=== PATIENT | female | born 1990 | race Caucasian/White ===

== ENCOUNTER 2018-07-30 12:10 | Emergency (ER) | payer BC, OTHER ==
[~2018-07-30] VITALS: Ht 170.2 cm; Wt 104.3 kg
[~2018-07-30 12:10] MED LIST: ADDERALL 10 MG10 MG PO; ADVAIR HFA 115-12 GM INH; NUVARING VAGIN1 EACH; PROAIR HFA INH8.5 GM INH
--- OUTSIDE RECORDS SUMMARY | 2018-07-30 12:15 | XMS REPORT | Encounter Summary ---
Author Organization Unknown Address [address] [place] [address] Phone [phone] Reason for Visit Medical Complaint; uti x 3 days Instructions 1. Candidiasis of vagina nystatin 100,000 unit/gram topical cream Diflucan [address] + NG DNA, PCR, unspecified specimen culture, urine urinalysis, dipstick Discussion Note: None recorded. Patient educational handouts: No information available. Plan of Care Patient Instructions Ok to take probiotic along with prescribed medication. Abstain from sex until result comes back. Increase fluid intake. Reminders Provider Appointments Medical 01/29/2016 8:05AM [id number], TECH Lab CT + NG DNA, PCR, Unspecified Specimen 01/28/2016 [facility] Culture, Urine 01/28/2016 [facility] Urinalysis, Dipstick 01/28/2016 [facility] Referral None recorded. Procedures None recorded. Surgeries None recorded. Imaging None recorded. Medications Name Start Date Adderall 10 mg tablet Take 1 tablet every day by oral route. Diflucan 150 mg tablet Take 1 tablet today and repeat in 3 days Loestrin 1.5/30 (21) 1.5 mg-30 mcg tablet Take 1 tablet every day by oral route. Nexium 20 mg capsule,delayed release Take 1 capsule every day by oral route. nystatin 100,000 unit/gram topical cream APPLY TO THE AFFECTED AREA(S) BY TOPICAL ROUTE 2 TIMES PER DAY x 14 days Medications Administered None recorded. Vitals Height Weight BMI Blood Pressure 5 ft 7 in 170 lbs 26.6 120/76 Lab Results Date Name Result Description Value Range Status Urinalysis, Dipstick Color : Yellow Clarity : Cloudy Leukocytes : Negative Nitrites : Negative Urobilinogen : Normal Protein : Negative Ph : 5.5 Blood : Negative Specific [place] : 1.005 Ketones : Negative Bilirubin : Negative Glucose Negative Allergies Name Reaction Severity Onset Prednisone Itching Severe Problems Name Status Onset Date Source Viral Syndrome Active Encounter Candidiasis of Vagina Active Encounter Pyelonephritis Active Encounter Urinary Tract Infectious Disease Active Encounter Procedures Date Name Performed by Tonsillectomy Information not available Vaccine List None recorded. Social History Smoking Status Never Smoker Past Encounters 01/28/2016 Candidiasis of Vagina Bailey Sanon, [facility]: [address] [place] [address], Ph. History of Present Illness [id number] Reported By: Patient HPI: Location: vagina. Quality: burning. Severity: moderate. Duration: started 3 days. Onset/Timing: worse. Context: no known exposure to STD, no prior history of STDs, sexually active, heterosexual, history of urine cultures/antibiotic treatment, wipes anterior to posterior, voids after intercourse, history of kidney stones. Modifying factors OTC medication. Associated Symptoms: no fever/chills, no flank pain, no jaundice, no blood in the urine, no pain during urination, no blisters on genitals, no rash on genitals, white vaginal discharge, urgency, urinary frequency Review of Systems Basic Reported By: Patient Constitutional: Constitutional: no fever Eyes: Eyes: no eye complaints Yatg-Daig-Qfrls-Throat: Ears: no ear complaints. Nose: no nose/sinus problems. Mouth/Throat: no sore throat, no bleeding gums, no mouth complaints, no teeth problems Cardiovascular: Cardiovascular: no chest pain, no shortness of breath, no known heart murmur Respiratory: Respiratory: no cough, no wheezing, no shortness of breath Gastrointestinal: Gastrointestinal: no abdominal pain, no vomiting / diarrhea Genitourinary: Genitourinary: no discharge, urinary urgency Musculoskeletal: Musculoskeletal: no muscle aches, no muscle weakness, no arthralgias/joint pain, no back pain Skin: Skin: no abnormal / changing mole, no jaundice, no rashes Neurologic: Neurologic: no loss of consciousness, no weakness, no numbness, no seizures, no dizziness, no headaches Physical Exam Adult Basic, Adult Female Complete Female : External genitalia: rash. Vagina: abnormal discharge; Thick curd discharge to genital area with mild erythematous rash to labia minora
--- OUTSIDE RECORDS SUMMARY | 2018-07-30 12:15 | XMS REPORT | Clinical Summary ---
Author Author [facility] Address Unknown Phone Unavailable Care Team Providers Care National Secretary Name Role Phone Wiliam Nolan MD PCP Allergies No Known Allergies Medications End Date Status Medication Sig Dispensed Refills Start Date Active valACYclovir (VALTREX) Take 500 mg 0 500 MG tablet by mouth 2 (two) times a day as needed. Active ASCORBATE CALCIUM Take 2 0 (VITAMIN C ORAL) tablets by mouth 2 (two) times a day. gummies Active dextroamphetamine-ampheta Take 10 mg by 0 mine (ADDERALL) 10 mg mouth 2 (two) tablet times a day. Active Problems Problem Noted Date Anemia 12/10/2015 Periumbilical abdominal pain 12/09/2015 GERD (gastroesophageal reflux disease) Asthma Overview: allergy induced Hyperglycemia ADD (attention deficit disorder) Family History Medical History Relation Name Comments Cancer Father Hypertension Father Cancer Maternal Grandfather Hypertension Mother Relation Name Status Comments Father Maternal Grandfather Mother Social History Date Tobacco Use Types Packs/Day Years Used Never Smoker Smokeless Tobacco: Never Used Alcohol Use Drinks/Week oz/Week Comments Yes 1 Glasses of 1.2 occassional wine 1 Cans of beer Sex Assigned at Date Recorded Not on file Industry Job Start Date Occupation Not on file Not on file Not on file Travel End Travel History Travel Start No recent travel history available. Last Filed Vital Signs Not on file Plan of Treatment Health Maintenance Due Date Last Done Comments CERVICAL CANCER SCREENING 2010 INFLUENZA VACCINE 12/29/2017 Results Not on fileafter 07/29/2017 Insurance Payer Benefit Subscriber ID Type Phone Address Plan / Group AETNA AETNA PPO xxxxxxxxxx PPO OPEN CHOICE AETNA AETNA xxxxxxxxxx HMO HMO,POS,EP O, MC/EC Alyse Hahn Reconstruc Self [phone] (Home) [place] [id number] Surgery Advance Directives Patient has advance care planning documents on file. For more information, angelo pickens contact: [employer] [address] [place] [address]
--- OUTSIDE RECORDS SUMMARY | 2018-07-30 12:15 | XMS REPORT | Encounter Summary ---
Author Organization Unknown Address [address] [place] [address] Phone [phone] Reason for Visit Medical Complaint Instructions 1. Urinary symptoms urinalysis, dipstick Bactrim DS 800 mg-160 mg tablet culture, urine Discussion Note: None recorded. Patient educational handouts: No information available. Plan of Care Patient Instructions take antibiotics as prescribed. increase fluids. otc tylenol or ibuprofen prn for pain. will contact patient when results of culture are finalized. follow up pcp Reminders Provider Appointments None recorded. Lab Urinalysis, Dipstick 08/15/2016 [facility] Culture, Urine 08/15/2016 [facility] Referral None recorded. Procedures None recorded. Surgeries None recorded. Imaging None recorded. Medications Name Start Date Bactrim DS 800 mg-160 mg tablet Take 1 tablet every 12 hours by oral route for 5 days. dextroamphetamine-amphetamine 10 mg tablet ferrous sulfate 325 mg (65 mg iron) tablet TK 1 T PO BID Loestrin 1.5/30 (21) 1.5 mg-30 mcg tablet Take 1 tablet every day by oral route. Nexium 20 mg capsule,delayed release Take 1 capsule every day by oral route. Medications Administered None recorded. Vitals Height Weight BMI Blood Pressure 5 ft 7 in 185 lbs 29 116/78 Lab Results Date Name Result Description Value Range Status Urinalysis, Dipstick Color : Yellow Clarity : Cloudy Leukocytes : Trace Nitrites : Negative Urobilinogen : Normal Protein : 100 Ph : 5.0 Blood : Negative Specific [place] : 1.020 Ketones : Small Bilirubin : Negative Glucose Negative Allergies Name Reaction Severity Onset Prednisone Itching Severe Problems Name Status Onset Date Source Viral Syndrome Active Encounter Candidiasis of Vagina Active Encounter Pyelonephritis Active Encounter Urinary Tract Infectious Disease Active Encounter Procedures Date Name Performed by Tonsillectomy Information not available Vaccine List None recorded. Social History Smoking Status Never Smoker Past Encounters 08/15/2016 Urinary Symptoms [facility]ZZ [facility]: [address] [place] [address], Ph. History of Present Illness [id number] Reported By: Patient HPI: Location: urethra. Quality: pressure. Severity: same. Duration: constant. Onset/Timing: gradual. Context: not sexually active, no known exposure to STD, no prior history of STDs, history of urine cultures/antibiotic treatment, wipes anterior to posterior, voids after intercourse. Modifying factors nothing makes it worse. Associated Symptoms: no fever/chills, no flank pain, no jaundice, no blood in the urine, no pain during urination, no vaginal discharge, no urgency, no blisters on genitals, no rash on genitals, no muscle aches, no headache, feeling of incomplete emptying of bladder Review of Systems:ROS as noted in the HPI Review of Systems Basic Reported By: Patient Physical Exam Adult Basic, Adult Female Complete Reported By: Patient Constitutional: General Appearance: healthy-appearing Psychiatric: Mental Status: active and alert Lungs: Respiratory effort: no dyspnea, no tachypnea, no use of accessory muscles, no intercostal retractions. Auscultation: breath sounds normal Cardiovascular: Heart Auscultation: RRR, no murmurs Abdomen: Inspection and Palpation: soft, non-distended, no tenderness, no guarding, no rebound tenderness, no masses, no CVA tenderness
--- OUTSIDE RECORDS SUMMARY | 2018-07-30 12:15 | XMS REPORT | Continuity of Care Document ---
Author Author [facility] Address Unknown Phone Unavailable Problems Problem Status Onset Date Classification Date Reported Comments Source Body mass index 30+ - obesity 03/01/2018 Diagnosis 03/01/2018 [facility] Upper respiratory infection 03/01/2018 Diagnosis 03/01/2018 [facility] Urgent desire to urinate 11/10/2017 Diagnosis 11/10/2017 [facility] Influenza 08/04/2017 Diagnosis 08/04/2017 [facility] Congestion of nasal sinus 08/04/2017 Diagnosis 08/04/2017 [facility] Cough 08/04/2017 Diagnosis 08/04/2017 [facility] Dysuria 04/23/2017 Diagnosis 04/23/2017 [facility] Acute upper respiratory infection 02/08/2017 Diagnosis 02/08/2017 [facility] Urinary symptoms 08/15/2016 Diagnosis 08/15/2016 [facility] Candidiasis of vagina 01/28/2016 Diagnosis 01/29/2016 [facility] Viral Syndrome Problem 08/04/2017 [facility] Candidiasis of Vagina Problem 08/04/2017 [facility] Pyelonephritis Problem 08/04/2017 [facility] Urinary Tract Infectious Disease Problem 08/04/2017 [facility] Medications Medication Details Route Status Patient Instructions Ordering Provider Order Date Source Amphetamine aspartate 2.5 MG / Amphetamine Sulfate 2.5 MG / Dextroamphetamine saccharate 2.5 MG / Dextroamphetamine Sulfate 2.5 MG Oral Tablet [Adderall] Adderall 10 mg tablet Take 1 tablet every day by oral route. Active [facility] Fluconazole 150 MG Oral Tablet [Diflucan] Diflucan 150 mg tablet Take 1 tablet today and repeat in 3 days Active [facility] Ethinyl Estradiol 0.03 MG / norethindrone acetate 1.5 MG Oral Tablet Loestrin 1.5/30 (21) 1.5 mg-30 mcg tablet Take 1 tablet every day by oral route. Active [facility] Esomeprazole 20 MG Delayed Release Oral Capsule [Nexium] Nexium 20 mg capsule,delayed release Take 1 capsule every day by oral route. Active [facility] Nystatin [id number] UNT/ML Topical Cream nystatin 100,000 unit/gram topical cream APPLY TO THE AFFECTED AREA(S) BY TOPICAL ROUTE 2 TIMES PER DAY x 14 days Active [facility] Blisovi Fe 1.5/30 (28) 1.5 mg-30 mcg (21)/75 mg (7) tablet [place] Fe 1.5/30 (28) 1.5 mg-30 mcg (21)/75 mg (7) tablet TK 1 T PO QD Active [facility] Ciprofloxacin 500 MG Oral Tablet [Cipro] Cipro 500 mg tablet Take 1 tablet every 12 hours by oral route for 7 days. Active [facility] Amphetamine aspartate 2.5 MG / Amphetamine Sulfate 2.5 MG / Dextroamphetamine saccharate 2.5 MG / Dextroamphetamine Sulfate 2.5 MG Oral Tablet dextroamphetamine- amphetamine 10 mg tablet Take 1 tablet every day by oral route. Active [facility] Ferrous fumarate 324 MG Oral Tablet [Ferrocite] Ferrocite 324 mg (106 mg iron) tablet TK 1 T PO D Active [facility] Azelastine hydrochloride 0.137 MG/ACTUAT Metered Dose Nasal [place] azelastine 137 mcg (0.1 %) nasal spray aerosol [place] 2 sprays twice a day by intranasal route. Active [facility] Azithromycin 250 MG Oral Tablet azithromycin 250 mg tablet TAKE 2 TABLETS (500 MG) BY ORAL ROUTE ONCE DAILY FOR 1 DAY THEN 1 TABLET (250 MG) BY ORAL ROUTE ONCE DAILY FOR 4 DAYS Active [facility] Ciprofloxacin 500 MG Oral Tablet ciprofloxacin 500 mg tablet TK 1 T PO Q 12 H FOR 10 DAYS Active [facility] Lo Loestrin Fe 1 mg-10 mcg (24)/10 mcg (2) tablet Lo Loestrin Fe 1 mg-10 mcg (24)/10 mcg (2) tablet Active [facility] Microgestin Fe 1.5/30 (28) 1.5 mg-30 mcg (21)/75 mg (7) tablet Microgestin Fe 1.5/30 (28) 1.5 mg-30 mcg (21)/75 mg (7) tablet Active [facility] NITROFURANTOIN, MACROCRYSTALS 25 MG / Nitrofurantoin, Monohydrate 75 MG Oral Capsule [Macrobid] Macrobid 100 mg capsule Take 1 capsule every 12 hours by oral route as directed for 7 days. Active [facility] Sulfamethoxazole 800 MG / Trimethoprim 160 MG Oral Tablet [Bactrim] Bactrim DS 800 mg-160 mg tablet Take 1 tablet every 12 hours by oral route for 5 days. Active [facility] ferrous sulfate 325 MG Oral Tablet ferrous sulfate 325 mg (65 mg iron) tablet TK 1 T PO BID Active [facility] benzonatate 200 MG Oral Capsule benzonatate 200 mg capsule Take 1 capsule 3 times a day by oral route for 10 days. Active [facility] Oseltamivir 75 MG Oral Capsule oseltamivir 75 mg capsule Take 1 capsule twice a day by oral route for 5 days. Active [facility] 200 ACTUAT Albuterol 0.09 MG/ACTUAT Metered Dose Inhaler [ProAir] ProAir HFA 90 mcg/actuation aerosol inhaler Active [facility] Promethazine Hydrochloride 12.5 MG Oral Tablet promethazine 12.5 mg tablet Active [facility] valacyclovir 500 MG Oral Tablet valacyclovir 500 mg tablet TK 1 T PO BID FOR 10 DAYS Active [facility] Allergies, Adverse Reactions, Alerts Substance Category Reaction Severity Reaction type Status Date Reported Comments Source Prednisone Itching Severe Allergy to substance 03/11/2015 [facility] Immunizations Immunization Date Given Site Status Last Updated Comments Source Results Order Name Results Value Reference Range Date Interpretation Comments Source Influenza A negative 02/28/2018 [facility] Influenza B negative 02/28/2018 [facility] RESULT negative 02/28/2018 [facility] SWAB LOCATION Left and Right tonsillar pillars 02/28/2018 [facility] Urinalysis macro (dipstick) panel - Urine COLOR : Yellow 11/10/2017 [facility] Urinalysis macro (dipstick) panel - Urine CLARITY : Cloudy 11/10/2017 [facility] Urinalysis macro (dipstick) panel - Urine LEUKOCYTES : Trace 11/10/2017 [facility] Urinalysis macro (dipstick) panel - Urine NITRITES : Negative 11/10/2017 [facility] Urinalysis macro (dipstick) panel - Urine UROBILINOGEN : Normal 11/10/2017 [facility] Urinalysis macro (dipstick) panel - Urine PROTEIN : 300 11/10/2017 [facility] Urinalysis macro (dipstick) panel - Urine pH : 5.0 11/10/2017 [facility] Urinalysis macro (dipstick) panel - Urine BLOOD : Negative 11/10/2017 [facility] Urinalysis macro (dipstick) panel - Urine SPECIFIC GRAVITY : 1.025 11/10/2017 [facility] Urinalysis macro (dipstick) panel - Urine KETONES : Negative 11/10/2017 [facility] Urinalysis macro (dipstick) panel - Urine BILIRUBIN : Negative 11/10/2017 [facility] Urinalysis macro (dipstick) panel - Urine GLUCOSE Negative 11/10/2017 [facility] Influenza A negative 08/04/2017 [facility] Influenza B negative 08/04/2017 [facility] Urinalysis macro (dipstick) panel - Urine COLOR : Straw 04/23/2017 [facility] Urinalysis macro (dipstick) panel - Urine CLARITY : Clear 04/23/2017 [facility] Urinalysis macro (dipstick) panel - Urine LEUKOCYTES : Small 04/23/2017 [facility] Urinalysis macro (dipstick) panel - Urine NITRITES : Negative 04/23/2017 [facility] Urinalysis macro (dipstick) panel - Urine UROBILINOGEN : Normal 04/23/2017 [facility] Urinalysis macro (dipstick) panel - Urine PROTEIN : 300 04/23/2017 [facility] Urinalysis macro (dipstick) panel - Urine pH : 5.0 04/23/2017 [facility] Urinalysis macro (dipstick) panel - Urine BLOOD : Negative 04/23/2017 [facility] Urinalysis macro (dipstick) panel - Urine SPECIFIC GRAVITY : 1.015 04/23/2017 [facility] Urinalysis macro (dipstick) panel - Urine KETONES : Trace 04/23/2017 [facility] Urinalysis macro (dipstick) panel - Urine BILIRUBIN : Negative 04/23/2017 [facility] Urinalysis macro (dipstick) panel - Urine GLUCOSE Negative 04/23/2017 [facility] Urinalysis macro (dipstick) panel - Urine COLOR : Yellow 02/08/2017 [facility] Urinalysis macro (dipstick) panel - Urine CLARITY : Cloudy 02/08/2017 [facility] Urinalysis macro (dipstick) panel - Urine LEUKOCYTES : Trace 02/08/2017 [facility] Urinalysis macro (dipstick) panel - Urine NITRITES : Positive 02/08/2017 [facility] Urinalysis macro (dipstick) panel - Urine COLOR : Yellow 02/08/2017 [facility] Urinalysis macro (dipstick) panel - Urine CLARITY : Cloudy 02/08/2017 [facility] Urinalysis macro (dipstick) panel - Urine LEUKOCYTES : Trace 02/08/2017 [facility] Urinalysis macro (dipstick) panel - Urine NITRITES : Positive 02/08/2017 [facility] Urinalysis macro (dipstick) panel - Urine UROBILINOGEN : Normal 02/08/2017 [facility] Urinalysis macro (dipstick) panel - Urine PROTEIN : 300 02/08/2017 [facility] Urinalysis macro (dipstick) panel - Urine pH : 5.0 02/08/2017 [facility] Urinalysis macro (dipstick) panel - Urine BLOOD : Moderate 02/08/2017 [facility] Urinalysis macro (dipstick) panel - Urine SPECIFIC GRAVITY : 1.005 02/08/2017 [facility] Urinalysis macro (dipstick) panel - Urine KETONES : Negative 02/08/2017 [facility] Urinalysis macro (dipstick) panel - Urine BILIRUBIN : Negative 02/08/2017 [facility] Urinalysis macro (dipstick) panel - Urine GLUCOSE Negative 02/08/2017 [facility] Influenza A negative 02/08/2017 [facility] Influenza B negative 02/08/2017 [facility] RESULT negative 02/08/2017 [facility] SWAB LOCATION Left and Right tonsillar pillars 02/08/2017 [facility] Urinalysis macro (dipstick) panel - Urine COLOR : Yellow 08/15/2016 [facility] Urinalysis macro (dipstick) panel - Urine CLARITY : Cloudy 08/15/2016 [facility] Urinalysis macro (dipstick) panel - Urine LEUKOCYTES : Trace 08/15/2016 [facility] Urinalysis macro (dipstick) panel - Urine NITRITES : Negative 08/15/2016 [facility] Urinalysis macro (dipstick) panel - Urine UROBILINOGEN : Normal 08/15/2016 [facility] Urinalysis macro (dipstick) panel - Urine PROTEIN : 100 08/15/2016 [facility] Urinalysis macro (dipstick) panel - Urine pH : 5.0 08/15/2016 [facility] Urinalysis macro (dipstick) panel - Urine BLOOD : Negative 08/15/2016 [facility] Urinalysis macro (dipstick) panel - Urine SPECIFIC GRAVITY : 1.020 08/15/2016 [facility] Urinalysis macro (dipstick) panel - Urine KETONES : Small 08/15/2016 [facility] Urinalysis macro (dipstick) panel - Urine BILIRUBIN : Negative 08/15/2016 [facility] Urinalysis macro (dipstick) panel - Urine GLUCOSE Negative 08/15/2016 [facility] Urinalysis macro (dipstick) panel - Urine COLOR : Yellow 01/28/2016 [facility] Urinalysis macro (dipstick) panel - Urine CLARITY : Cloudy 01/28/2016 [facility] Urinalysis macro (dipstick) panel - Urine LEUKOCYTES : Negative 01/28/2016 [facility] Urinalysis macro (dipstick) panel - Urine NITRITES : Negative 01/28/2016 [facility] Urinalysis macro (dipstick) panel - Urine UROBILINOGEN : Normal 01/28/2016 [facility] Urinalysis macro (dipstick) panel - Urine PROTEIN : Negative 01/28/2016 [facility] Urinalysis macro (dipstick) panel - Urine pH : 5.5 01/28/2016 [facility] Urinalysis macro (dipstick) panel - Urine BLOOD : Negative 01/28/2016 [facility] Urinalysis macro (dipstick) panel - Urine SPECIFIC GRAVITY : 1.005 01/28/2016 [facility] Urinalysis macro (dipstick) panel - Urine KETONES : Negative 01/28/2016 [facility] Urinalysis macro (dipstick) panel - Urine BILIRUBIN : Negative 01/28/2016 [facility] Urinalysis macro (dipstick) panel - Urine GLUCOSE Negative 01/28/2016 [facility] Vital Signs Vital Sign Value Date Comments Source Diastolic (mm Hg) 76 02/28/2018 [facility] Height 67 02/28/2018 [facility] Systolic (mm Hg) 118 02/28/2018 [facility] Weight 220 02/28/2018 [facility] Diastolic (mm Hg) 76 11/10/2017 [facility] Height 67 11/10/2017 [facility] Systolic (mm Hg) 118 11/10/2017 [facility] Weight 213 11/10/2017 [facility] Diastolic (mm Hg) 78 08/04/2017 [facility] Height 67 08/04/2017 [facility] Systolic (mm Hg) 120 08/04/2017 [facility] Weight 200 08/04/2017 [facility] Diastolic (mm Hg) 80 04/23/2017 [facility] Height 67 04/23/2017 [facility] Systolic (mm Hg) 122 04/23/2017 [facility] Weight 180 04/23/2017 [facility] Diastolic (mm Hg) 68 02/08/2017 [facility] Height 67 02/08/2017 [facility] Systolic (mm Hg) 108 02/08/2017 [facility] Weight 180 02/08/2017 [facility] Diastolic (mm Hg) 78 08/15/2016 [facility] Height 67 08/15/2016 [facility] Systolic (mm Hg) 116 08/15/2016 [facility] Weight 185 08/15/2016 [facility] Diastolic (mm Hg) 76 01/28/2016 [facility] Height 67 01/28/2016 [facility] Systolic (mm Hg) 120 01/28/2016 [facility] Weight 170 01/28/2016 [facility] Encounters Location Location Details Encounter Type Encounter Number Reason For Visit Attending Provider ADM Date DC Date Status Source [place] - [facility] - [id number] ADARSH MelloP: [address] [place] [address], Ph. [id number] Bailey Sanon 01/28/2016 [facility] [place] [facility] - [id number] Nunes-[facility]: [address] [place] [address], Ph. [id number] Brian Sanon 08/15/2016 [facility] [place] [facility] - [id number] Rissa Angel, [employer]: [address] [place] [address], Ph. [id number] Rissa Jeanne 02/08/2017 [facility] [place] [facility] - [id number] Rissa Jeanne, [employer]: [address], [place] [address], Ph. [id number] Rissa Jeanne 02/08/2017 [facility] [place] [facility] - [id number] Brian Sanon, [employer]-C: [address], [place] [address], Ph. [phone] [id number] Brian Sanon 04/23/2017 [facility] [place] [facility] - [id number] Emely Wiley, [employer]: [address], [place] [address], Ph. [id number] Emely Wiley 08/04/2017 [facility] [place] [facility] - [id number] Bailey Talita, [employer]: [address], [place] [address], Ph. [id number] Bailey Sanon 11/10/2017 [facility] [place] [facility] - [id number] Christina Hicks, [employer]: [address], [place] [address], Ph. [id number] Christina Hicks 02/28/2018 [facility] Procedures Procedure Code Date Perfomer Comments Source Tonsillectomy [facility] Gastric Bypass [facility]
--- OUTSIDE RECORDS SUMMARY | 2018-07-30 12:16 | XMS REPORT | Encounter Summary ---
Author Organization Unknown Address [address] [place] [address] Phone [phone] Reason for Visit Medical Complaint Instructions 1. Urgent desire to urinate urinalysis, dipstick Macrobid 100 mg capsule culture, urine 2. Body mass index 30+ - obesity A healthy lifestyle: care instructions Discussion Note: None recorded. Plan of Care Patient Instructions Increase fluid intake. Take med as prescribed. If started to have yeast infection while on antibiotic, may call clinic for diflucan. Wipe front to back and urinate after sexual intercouse. Wear loose cotton underwear. May take cranberry juice for preventative. If symptoms worsen follow with severe back pain, chills, fever, abdominal pain call clinic. Reminders Provider Appointments None recorded. Lab Urinalysis, Dipstick 11/10/2017 [facility] Culture, Urine 11/10/2017 [facility] Referral None recorded. Procedures None recorded. Surgeries None recorded. Imaging None recorded. Medications Name Start Date Blisovi Fe 1.5/30 (28) 1.5 mg-30 mcg (21)/75 mg (7) tablet TK 1 T PO QD dextroamphetamine-amphetamine 10 mg tablet Take 1 tablet every day by oral route. Ferrocite 324 mg (106 mg iron) tablet TK 1 T PO D Macrobid 100 mg capsule Take 1 capsule every 12 hours by oral route as directed for 7 days. Nexium 20 mg capsule,delayed release Take 1 capsule every day by oral route. Medications Administered None recorded. Vitals Height Weight BMI Blood Pressure 5 ft 7 in 213 lbs 33.4 kg/m2 118/76 mm[Hg] Lab Results Date Name Specimen Result Interpretation Description Value Range Status Address 11/10/2017 Urinalysis, Dipstick Color : Yellow [facility]: [address] [place] [address] Clarity : Cloudy [facility]: [address] [place] [address] Leukocytes : Trace [facility]: [address] [place] [address] Nitrites : Negative [facility]: [address] [place] [address] Urobilinogen : Normal [facility]: 9 [facility] Protein : 300 [facility]: 9 [facility] Ph : 5.0 [facility]: 9 [facility] Blood : Negative [facility]: 9 [facility] Specific [place] : 1.025 [facility]: 9 [facility] Ketones : Negative [facility]: 9 [facility] Bilirubin : Negative [facility]: 9 [facility] Glucose Negative [facility]: 9 [facility] Allergies Code Code System Name Reaction Severity Status Onset 8640 RxNorm Prednisone Itching Severe Active Problems No Known Problems Procedures Date Name Performed by Gastric Bypass Information not available Tonsillectomy Information not available Vaccine List None recorded. Social History Smoking Status Never Smoker Past Encounters 11/10/2017 Urgent Desire to Urinate; Body Mass Index 30+ - Obesity Bailey Sanon, [employer] SYSTEM[employer] SPECIALIST: [address] [place] [address], Ph. History of Present Illness [id number] Reported By: Patient HPI: Location: urethra. Quality: ; urgency. Duration: started 1 day. Onset/Timing: sudden. Context: no known exposure to STD, no prior history of STDs, sexually active, heterosexual, history of urine cultures/antibiotic treatment, wipes anterior to posterior, voids after intercourse. Modifying factors OTC medication. Associated Symptoms: no fever/chills, no jaundice, no blood in the urine, no pain during urination, no vaginal discharge, no blisters on genitals, no rash on genitals, no muscle aches, no headache, flank pain, urgency Review of Systems Basic Reported By: Patient Constitutional: Constitutional: no fever Eyes: Eyes: no eye complaints Vkkw-Dwkf-Dstcv-Throat: Ears: no ear complaints. Nose: no nose/sinus problems. Mouth/Throat: no sore throat, no bleeding gums, no mouth complaints, no teeth problems Cardiovascular: Cardiovascular: no chest pain, no shortness of breath, no known heart murmur Respiratory: Respiratory: no cough, no wheezing, no shortness of breath Gastrointestinal: Gastrointestinal: no abdominal pain, no vomiting / diarrhea Genitourinary: Genitourinary: no discharge, dysuria, urinary urgency Musculoskeletal: Musculoskeletal: no muscle aches, no muscle weakness, no arthralgias/joint pain, no back pain Skin: Skin: no abnormal / changing mole, no jaundice, no rashes Neurologic: Neurologic: no loss of consciousness, no weakness, no numbness, no seizures, no dizziness, no headaches Physical Exam Adult Basic, Adult Female Complete, 14-21 Yr Females Reported By: Patient Constitutional: General Appearance: obese. Level of Distress: NAD. Ambulation: ambulating normally Psychiatric: Mental Status: active and alert, normal affect, normal mood. Orientation: to time, to place, to person Eyes: Lids and Conjunctivae: non-injected, no discharge, no pallor. Pupils: PERRLA, equal size, round, reactive to light. Corneas: grossly intact. EOM: EOMI, normal cover/uncover test. Lens: clear. Sclerae: non-icteric. Vision: acuity grossly intact Lch-Efca-Nghqh-Throat: Ears: no lesions on external ear, no outer ear tenderness, EACs clear, TMs clear. Hearing: no hearing loss. Nose: no lesions on external nose, nares patent, no septal deviation, nasal passages clear, no sinus tenderness, no nasal discharge. Lips, Teeth, and Gums: no mouth or lip ulcers, no bleeding gums, normal dentition. Oropharynx: moist mucous membranes, no erythema, no exudates, tonsils not enlarged Neck: Neck: supple, trachea midline, no masses, FROM. Lymph Nodes: no cervical LAD, no supraclavicular LAD. Thyroid: no enlargement, non-tender, no nodules, no asymmetry Lungs: Respiratory effort: no dyspnea, no tachypnea, no use of accessory muscles, no intercostal retractions. Auscultation: breath sounds normal, clear to auscultation, no wheezing, no rales/crackles, no rhonchi, no retractions Cardiovascular: Heart Auscultation: RRR, no murmurs, no gallops, no rub, normal femoral pulse. Neck vessels: no carotid bruits. Apical impulse: not displaced. Rate and rhythm: regular Abdomen: Bowel Sounds: normal. Inspection and Palpation: soft, non-distended, no tenderness, no guarding, no rebound tenderness, no masses, CVA tenderness. Liver: non-tender, no hepatomegaly. Spleen: non-tender, no splenomegaly. Hernia: none palpable. Palpation: (normal) bowel sounds
--- OUTSIDE RECORDS SUMMARY | 2018-07-30 12:16 | XMS REPORT | Encounter Summary ---
Author Organization Unknown Address [address] [place] [address] Phone [phone] Reason for Visit Medical Complaint Instructions 1. Influenza rapid flu (A+B) influenza (flu): care instructions oseltamivir 75 mg capsule 2. Congestion of nasal sinus 3. Cough cough: care instructions benzonatate 200 mg capsule Discussion Note: None recorded. Plan of Care Patient Instructions Influenza (Flu): Care Instructions Your Care Instructions Influenza (flu) is an infection in the lungs and breathing passages. It is caused by the influenza virus. There are different strains, or types, of the flu virus from year to year. Unlike the common cold, the flu comes on suddenly and the symptoms, such as a cough, congestion, fever, chills, fatigue, aches, and pains, are more severe. These symptoms may last up to 10 days. Although the flu can make you feel very sick, it usually doesn't cause serious health problems. Home treatment is usually all you need for flu symptoms. But your doctor may prescribe antiviral medicine to prevent other health problems, such as pneumonia, from developing. Older people and those who have a long-term health condition, such as lung disease, are most at risk for having pneumonia or other health problems. Follow-up care is a hitchcock part of your treatment and safety. Be sure to make and go to all appointments, and call your doctor if you are having problems. Its also a good idea to know your test results and keep a list of the medicines you take. How can you care for yourself at home? Get plenty of rest. Drink plenty of fluids, enough so that your urine is light yellow or clear like water. If you have kidney, heart, or liver disease and have to limit fluids, talk with your doctor before you increase the amount of fluids you drink. Take an mjsm-tvq-ksumqzb pain medicine if needed, such as acetaminophen (Tylenol), ibuprofen (Advil, Motrin), or naproxen (Aleve), to relieve fever, headache, and muscle aches. Read and follow all instructions on the label. No one younger than 20 should take aspirin. It has been linked to Javier syndrome, a serious illness. Do not smoke. Smoking can make the flu worse. If you need help quitting, talk to your doctor about stop-smoking programs and medicines. These can increase your chances of quitting for good. Breathe moist air from a hot shower or from a sink filled with hot water to help clear a stuffy nose. Before you use cough and cold medicines, check the label. These medicines may not be safe for young children or for people with certain health problems. If the skin around your nose and lips becomes sore, put some petroleum jelly on the area. To ease coughing: Drink fluids to soothe a scratchy throat. Suck on cough drops or plain hard candy. Take an yxng-kaz-ahtkfsb cough medicine that contains dextromethorphan to help you get some sleep. Read and follow all instructions on the label. Raise your head at night with an extra pillow. This may help you rest if coughing keeps you awake. Take any prescribed medicine exactly as directed. Call your doctor if you think you are having a problem with your medicine. To avoid spreading the flu Wash your hands regularly, and keep your hands away from your face. Stay home from school, work, and other public places until you are feeling better and your fever has been gone for at least 24 hours. The fever needs to have gone away on its own without the help of medicine. Ask people living with you to talk to their doctors about preventing the flu. They may get antiviral medicine to keep from getting the flu from you. To prevent the flu in the future, get a flu vaccine every fall. Encourage people living with you to get the vaccine. Cover your mouth when you cough or sneeze. When should you call for help? Call 911 anytime you think you may need emergency care. For example, call if: You have severe trouble breathing. Call your doctor now or seek immediate medical care if: You have new or worse trouble breathing. You seem to be getting much sicker. You feel very sleepy or confused. You have a new or higher fever. You get a new rash. Watch closely for changes in your health, and be sure to contact your doctor if: You begin to get better and then get worse. You are not getting better after 1 week. Where can you learn more? Go to www.[employer]recipe, log into the web portal, and enter L652 in the search box to learn more about Influenza (Flu): Care Instructions. Care instructions adapted under license by [facility]. This care instruction is for use with your licensed healthcare professional. If you have questions about a medical condition or this instruction, always ask your healthcare professional. [employer] disclaims any warranty or liability for your use of this information. Cough: Care Instructions Your Care Instructions A cough is your body's response to something that bothers your throat or airways. Many things can cause a cough. You might cough because of a cold or the flu, bronchitis, or asthma. Smoking, postnasal drip, allergies, and stomach acid that backs up into your throat also can cause coughs. A cough is a symptom, not a disease. Most coughs stop when the cause, such as a cold, goes away. You can take a few steps at home to cough less and feel better. Follow-up care is a hitchcock part of your treatment and safety. Be sure to make and go to all appointments, and call your doctor if you are having problems. It's also a good idea to know your test results and keep a list of the medicines you take. How can you care for yourself at home? Drink lots of water and other fluids. This helps thin the mucus and soothes a dry or sore throat. Honey or lemon juice in hot water or tea may ease a dry cough. Take cough medicine as directed by your doctor. Prop up your head on pillows to help you breathe and ease a dry cough. Try cough drops to soothe a dry or sore throat. Cough drops don't stop a cough. Medicine-flavored cough drops are no better than candy-flavored drops or hard candy. Do not smoke. Avoid secondhand smoke. If you need help quitting, talk to your doctor about stop-smoking programs and medicines. These can increase your chances of quitting for good. When should you call for help? Call 911 anytime you think you may need emergency care. For example, call if: You have severe trouble breathing. Call your doctor now or seek immediate medical care if: You cough up blood. You have new or worse trouble breathing. You have a new or higher fever. You have a new rash. Watch closely for changes in your health, and be sure to contact your doctor if: You cough more deeply or more often, especially if you notice more mucus or a change in the color of your mucus. You have new symptoms, such as a sore throat, an earache, or sinus pain. You do not get better as expected. Where can you learn more? Go to www.[employer], log into the web portal, and enter D279 in the search box to learn more about Cough: Care Instructions. Care instructions adapted under license by [facility]. This care instruction is for use with your licensed healthcare professional. If you have questions about a medical condition or this instruction, always ask your healthcare professional. [employer] disclaims any warranty or liability for your use of this information. Reminders Provider Appointments None recorded. Lab Rapid Flu (A+B) 08/04/2017 [facility] Referral None recorded. Procedures None recorded. Surgeries None recorded. Imaging None recorded. Medications Name Start Date benzonatate 200 mg capsule Take 1 capsule 3 times a day by oral route for 10 days. Blisovi Fe 1.5/30 (28) 1.5 mg-30 mcg (21)/75 mg (7) tablet TK 1 T PO QD ciprofloxacin 500 mg tablet TK 1 T PO Q 12 H FOR 10 DAYS dextroamphetamine-amphetamine 10 mg tablet Take 1 tablet every day by oral route. Ferrocite 324 mg (106 mg iron) tablet TK 1 T PO QD Nexium 20 mg capsule,delayed release Take 1 capsule every day by oral route. oseltamivir 75 mg capsule Take 1 capsule twice a day by oral route for 5 days. ProAir HFA 90 mcg/actuation aerosol inhaler promethazine 12.5 mg tablet valacyclovir 500 mg tablet TK 1 T PO BID FOR 10 DAYS Medications Administered None recorded. Vitals Height Weight BMI Blood Pressure 5 ft 7 in 200 lbs 31.3 kg/m2 120/78 mm[Hg] Lab Results Date Name Specimen Result Interpretation Description Value Range Status Address Rapid Flu (A+B) Influenza a negative [facility]: [address] [place] [address] Influenza B negative [facility]: [address] [place] [address] Allergies Code Code System Name Reaction Severity Status Onset 8640 RxNorm Prednisone Itching Severe Active Problems Name Status Onset Date Source Viral Syndrome Active Encounter Candidiasis of Vagina Active Encounter Pyelonephritis Active Encounter Urinary Tract Infectious Disease Active Encounter Procedures Date Name Performed by Tonsillectomy Information not available Vaccine List None recorded. Social History Smoking Status Never Smoker Past Encounters 08/04/2017 Influenza; Congestion of Nasal Sinus; Cough Emely Wiley, SALES ACCOUNT REPRESENTATIVE: [address] [facility], [place] [address], Ph. History of Present Illness [id number]-[id number] Reported By: Patient HPI: Location: head/sinuses. Quality: productive cough, nasal/sinus congestion. Duration: 2days. Severity: moderate. Onset/Timing: gradual. Context: no sick contacts, no foreign travel, non-smoker. Modifying factors: OTC medication. Associated Symptoms: no sputum production, no shortness of breath, no wheezing, no change in number of pillows needed to sleep at night, no sweats, no significant weight gain, no significant weight loss, no morning cough, no sore throat, no diarrhea, no rash, no fever, no muscle aches, vomiting, nausea, fever, headache Review of Systems Basic Reported By: Patient Constitutional: Constitutional: fever Eyes: Eyes: no eye complaints Hcvc-Eseg-Lcfib-Throat: Ears: ear pain. Nose: nose/sinus problems. Mouth/Throat: no sore throat, no bleeding gums, no mouth complaints, no teeth problems Cardiovascular: Cardiovascular: no chest pain, no shortness of breath, no known heart murmur Respiratory: Respiratory: no wheezing, no shortness of breath, cough Gastrointestinal: Gastrointestinal: no abdominal pain, vomiting Genitourinary: Genitourinary: no urinary complaints, no discharge Musculoskeletal: Musculoskeletal: no muscle aches, no muscle weakness, no arthralgias/joint pain, no back pain Skin: Skin: no abnormal / changing mole, no jaundice, no rashes Neurologic: Neurologic: no loss of consciousness, no weakness, no numbness, no seizures, no dizziness, no headaches, headache Physical Exam Adult Basic, Adult Female Complete Reported By: Patient Constitutional: General Appearance: healthy-appearing, well-nourished, well-developed. Level of Distress: mild distress. Ambulation: ambulating normally Psychiatric: Mental Status: active and alert. Orientation: to time, to place, to person Aod-Cxrp-Qdvgo-Throat: Ears: no lesions on external ear, no outer ear tenderness, EACs clear, TMs clear. Hearing: no hearing loss. Nose: no lesions on external nose, nares patent, no septal deviation, nasal passages clear, no sinus tenderness, nasal discharge. Lips, Teeth, and Gums: no mouth or lip ulcers, no bleeding gums, normal dentition. Oropharynx: moist mucous membranes, no exudates, tonsils not enlarged Neck: Neck: supple, trachea midline. Lymph Nodes: no cervical LAD, no supraclavicular LAD Lungs: Respiratory effort: no dyspnea, no tachypnea, no use of accessory muscles, no intercostal retractions. Auscultation: breath sounds normal; intermittent cough Cardiovascular: Heart Auscultation: RRR, no murmurs Neurologic: Gait and Station: normal gait, normal station
--- OUTSIDE RECORDS SUMMARY | 2018-07-30 12:16 | XMS REPORT | Encounter Summary ---
Author Organization Unknown Address [address] [place] [address] Phone [phone] Reason for Visit Medical Complaint Instructions 1. Dysuria painful urination (dysuria): care instructions urinalysis, dipstick culture, urine Cipro 500 mg tablet Discussion Note: None recorded. Plan of Care Patient Instructions take antibiotics as prescribed. increase fluids. otc tylenol or ibuprofen prn for pain. will contact patient when results of culture are finalized. follow up pcp Reminders Provider Appointments None recorded. Lab Urinalysis, Dipstick 04/23/2017 [facility] Culture, Urine 04/23/2017 [facility] Referral None recorded. Procedures None recorded. Surgeries None recorded. Imaging None recorded. Medications Name Start Date Blisovi Fe 1.5/30 (28) 1.5 mg-30 mcg (21)/75 mg (7) tablet TK 1 T PO QD Cipro 500 mg tablet Take 1 tablet every 12 hours by oral route for 7 days. dextroamphetamine-amphetamine 10 mg tablet Take 1 tablet every day by oral route. Ferrocite 324 mg (106 mg iron) tablet TK 1 T PO QD Nexium 20 mg capsule,delayed release Take 1 capsule every day by oral route. Medications Administered None recorded. Vitals Height Weight BMI Blood Pressure 5 ft 7 in 180 lbs 28.2 kg/m2 122/80 mm[Hg] Lab Results Date Name Specimen Result Interpretation Description Value Range Status Address Urinalysis, Dipstick Color : Straw [facility]: [address] [place] [address] Clarity : Clear [facility]: [address] [place] [address] Leukocytes : Small [facility]: [address] [place] [address] Nitrites : Negative [facility]: [address] [place] [address] Urobilinogen : Normal [facility]: [address] [place] [address] Protein : 300 [facility]: [address] [place] [address] Ph : 5.0 [facility]: [address] [place] [address] Blood : Negative [facility]: [address] [place] [address] Specific [place] : 1.015 [facility]: [address] [facility] Ketones : Trace [facility]: 9 [facility] Bilirubin : Negative [facility]: 9 [facility] Glucose Negative [facility]: 9 [facility] Allergies Code Code System Name Reaction Severity Status Onset 8682 RxNorm Prednisone Itching Severe Active Problems Name Status Onset Date Source Viral Syndrome Active Encounter Candidiasis of Vagina Active Encounter Pyelonephritis Active Encounter Urinary Tract Infectious Disease Active Encounter Procedures Date Name Performed by Tonsillectomy Information not available Vaccine List None recorded. Social History Smoking Status Never Smoker Past Encounters 04/23/2017 Dysuria Brian Sanon, [facility]: [address] [place] [address], Ph. History of Present Illness [id number] Reported By: Patient HPI: Location: urethra. Quality: pressure, burning. Severity: mild, moderate. Duration: constant. Onset/Timing: gradual. Context: no known exposure to STD, no prior history of STDs, history of urine cultures/antibiotic treatment, wipes anterior to posterior, voids after intercourse. Modifying factors OTC medication. Associated Symptoms: no fever/chills, no flank pain, no jaundice, no blood in the urine, no pain during urination, no vaginal discharge, no blisters on genitals, no rash on genitals, no muscle aches, no headache, burning sensation during urination, urgency, urinary frequency Review of Systems:ROS as noted in the HPI Review of Systems Basic Reported By: Patient Physical Exam Adult Basic, Adult Female Complete Reported By: Patient Constitutional: General Appearance: healthy-appearing, well-nourished, well-developed. Level of Distress: NAD. Ambulation: ambulating normally Psychiatric: Mental Status: active and alert Lungs: Respiratory effort: no dyspnea, no tachypnea, no use of accessory muscles, no intercostal retractions. Auscultation: breath sounds normal Cardiovascular: Heart Auscultation: RRR, no murmurs Abdomen: Inspection and Palpation: soft, non-distended, no tenderness, no guarding, no rebound tenderness, no masses, no CVA tenderness
--- OUTSIDE RECORDS SUMMARY | 2018-07-30 12:16 | XMS REPORT | Encounter Summary ---
Author Organization Unknown Address [address] [place] [address] Phone [phone] Reason for Visit Medical Complaint Instructions 1. Dysuria urinalysis, dipstick ciprofloxacin 500 mg tablet culture, urine urinary tract infection in women: care instructions 2. Acute upper respiratory infection upper respiratory infection (cold): care instructions Discussion Note: None recorded. Plan of Care Reminders Provider Appointments None recorded. Lab Urinalysis, Dipstick 02/08/2017 [facility] Culture, Urine 02/08/2017 [facility] Referral None recorded. Procedures None recorded. Surgeries None recorded. Imaging None recorded. Medications Name Start Date ciprofloxacin 500 mg tablet Take 1 tablet every 12 hours by oral route with meals for 5 days. dextroamphetamine-amphetamine 10 mg tablet Take 1 tablet every day by oral route. Ferrocite 324 mg (106 mg iron) tablet TK 1 T PO QD Lo Loestrin Fe 1 mg-10 mcg (24)/10 mcg (2) tablet Microgestin Fe 1.5/30 (28) 1.5 mg-30 mcg (21)/75 mg (7) tablet Nexium 20 mg capsule,delayed release Take 1 capsule every day by oral route. Medications Administered None recorded. Vitals Height Weight BMI Blood Pressure 5 ft 7 in 180 lbs 28.2 kg/m2 108/68 mm[Hg] Lab Results Date Name Specimen Result Interpretation Description Value Range Status Address Urinalysis, Dipstick Color : Yellow [facility]: [address] [place] [address] Clarity : Cloudy [facility]: [address] [place] [address] Leukocytes : Trace [facility]: [address] [place] [address] Nitrites : Positive [facility]: [address] [place] [address] Urobilinogen : Normal [facility]: [address] [place] [address] Protein : 300 [facility]: [address] [place] [address] Ph : 5.0 [facility]: [address] [place] [address] Blood : Moderate [facility]: [address] [place] [address] Specific [place] : 1.005 [facility]: [facility] Ketones : Negative [facility]: 9 [facility] Bilirubin : Negative [facility]: 9 [facility] Glucose Negative [facility]: 9 [facility] Allergies Code Code System Name Reaction Severity Status Onset 8640 RxNorm Prednisone Itching Severe Active Problems Name Status Onset Date Source Viral Syndrome Active Encounter Candidiasis of Vagina Active Encounter Pyelonephritis Active Encounter Urinary Tract Infectious Disease Active Encounter Procedures Date Name Performed by Tonsillectomy Information not available Vaccine List None recorded. Social History Smoking Status Never Smoker Past Encounters 02/08/2017 Dysuria; Acute Upper Respiratory Infection Rissa Angel, COLLEGE [employer]IVERSITY BUSINESS MANAGER: [address] [place] [address], Ph. History of Present Illness [id number] Reported By: Patient HPI: Location: urethra. Quality: burning. Severity: worsening, moderate. Duration: started 1 day, constant. Onset/Timing: worse, sudden. Context: no known exposure to STD, no prior history of STDs, sexually active, LMP01/17/2017. Associated Symptoms: no jaundice, no blood in the urine, no pain during urination, no vaginal discharge, no blisters on genitals, no rash on genitals, no muscle aches, no headache, fever/chills, flank pain, burning sensation during urination, urgency, urinary frequency Cgrhr-Nblknnvlzn-Xlnepys Reported By: Patient HPI: Location: head/sinuses, throat. Quality: sore throat, nasal/sinus congestion, dry cough. Duration: 1days. Severity: moderate. Onset/Timing: sudden. Context: no sick contacts, no foreign travel, non-smoker. Modifying factors: OTC medication. Associated Symptoms: no sputum production, no shortness of breath, no wheezing, no vomiting, no diarrhea, no rash, no nausea, no muscle aches, fatigue, sore throat, fever, headache Note:
Review of Systems:ROS as noted in the HPI Review of Systems Basic Reported By: Patient Gastrointestinal: Gastrointestinal: no abdominal pain, no vomiting / diarrhea Physical Exam Adult Basic, Adult Female Complete Reported By: Patient Constitutional: General Appearance: healthy-appearing, well-nourished, well-developed. Level of Distress: NAD. Ambulation: ambulating normally Psychiatric: Mental Status: active and alert. Orientation: to time, to place, to person Vwv-Ivum-Acyts-Throat: Ears: no lesions on external ear, no outer ear tenderness, EACs clear, TMs clear. Hearing: no hearing loss. Nose: no lesions on external nose, nares patent, no septal deviation, nasal passages clear, no sinus tenderness, nasal discharge--rhinorrhea, post nasal drip. Lips, Teeth, and Gums: no mouth or lip ulcers, no bleeding gums, normal dentition. Oropharynx: moist mucous membranes, no exudates, tonsils not enlarged, erythema Lungs: Respiratory effort: no dyspnea, no tachypnea, no use of accessory muscles, no intercostal retractions. Auscultation: breath sounds normal Cardiovascular: Heart Auscultation: RRR, no murmurs Abdomen: Bowel Sounds: normal. Inspection and Palpation: soft, non-distended, no tenderness, no guarding, no rebound tenderness, no masses, CVA tenderness. Liver: non-tender, no hepatomegaly. Spleen: non-tender, no splenomegaly. Hernia: none palpable
--- OUTSIDE RECORDS SUMMARY | 2018-07-30 12:16 | XMS REPORT | Encounter Summary ---
Author Organization Unknown Address [address] [place] [address] Phone [phone] Reason for Visit Medical Complaint Instructions 1. Upper respiratory infection rapid strep group A, throat rapid flu (A+B) upper respiratory infection (cold): care instructions azithromycin 250 mg tablet azelastine 137 mcg (0.1 %) nasal spray aerosol 2. Body mass index 30+ - obesity Discussion Note: None recorded. Plan of Care Patient Instructions Take medication as directed. If symptoms worsen or do not improve follow up with your PCP. Drink plenty of fluids and rest. Reminders Provider Appointments None recorded. Lab Rapid Strep Group a, Throat 02/28/2018 [facility] Rapid Flu (A+B) 02/28/2018 [facility] Referral None recorded. Procedures None recorded. Surgeries None recorded. Imaging None recorded. Medications Name Start Date azelastine 137 mcg (0.1 %) nasal spray aerosol [place] 2 sprays twice a day by intranasal route. azithromycin 250 mg tablet TAKE 2 TABLETS (500 MG) BY ORAL ROUTE ONCE DAILY FOR 1 DAY THEN 1 TABLET (250 MG) BY ORAL ROUTE ONCE DAILY FOR 4 DAYS [place] Fe 1.5/30 (28) 1.5 mg-30 mcg (21)/75 mg (7) tablet TK 1 T PO QD dextroamphetamine-amphetamine 10 mg tablet Take 1 tablet every day by oral route. Ferrocite 324 mg (106 mg iron) tablet TK 1 T PO D Nexium 20 mg capsule,delayed release Take 1 capsule every day by oral route. Medications Administered None recorded. Vitals Height Weight BMI Blood Pressure 5 ft 7 in 220 lbs 34.5 kg/m2 118/76 mm[Hg] Lab Results Date Name Specimen Result Interpretation Description Value Range Status Address Rapid Flu (A+B) Influenza a negative [facility]: [address] [place] [address] Influenza B negative [facility]: [address] [place] [address] Rapid Strep Group a, Throat Result negative [facility]: [address] [place] [address] Swab Location Left and Right tonsillar pillars [facility]: [address] [place] [address] Allergies Code Code System Name Reaction Severity Status Onset 8640 RxNorm Prednisone Itching Severe Active Problems No Known Problems Procedures Date Name Performed by Gastric Bypass Information not available Tonsillectomy Information not available Vaccine List None recorded. Social History Smoking Status Never Smoker Past Encounters 02/28/2018 Upper Respiratory Infection; Body Mass Index 30+ - Obesity Christina Hicks, TRAVELING AUDITOR: [address] [place] [address], Ph. History of Present Illness Vjjyy-Ijvkpyxtrc-Hzlembo Reported By: Patient HPI: Location: head/sinuses, throat. Quality: sore throat, nasal/sinus congestion. Duration: 3days. Severity: moderate. Onset/Timing: sudden. Context: no foreign travel, non-smoker, sick contact, allergies. Modifying factors: OTC medication. Associated Symptoms: no sputum production, no shortness of breath, no wheezing, no change in number of pillows needed to sleep at night, no sweats, no significant weight gain, no significant weight loss, no morning cough, no vomiting, no diarrhea, no rash, no nausea, no fever, no muscle aches, no headache, sore throat, fever; ear pain, stuffy nose Review of Systems Basic Reported By: Patient Constitutional: Constitutional: no fever; chills Eyes: Eyes: no eye complaints Txyp-Yxvy-Vxagn-Throat: Ears: ear pain. Nose: nose/sinus problems. Mouth/Throat: sore throat Respiratory: Respiratory: no cough, no wheezing, no shortness of breath Skin: Skin: no abnormal / changing mole, no jaundice, no rashes Neurologic: Neurologic: no headaches Physical Exam Adult Basic, Adult Female Complete Reported By: Patient Constitutional: General Appearance: healthy-appearing, well-nourished, well-developed. Level of Distress: acutely ill. Ambulation: ambulating normally Psychiatric: Mental Status: active and alert. Orientation: to time, to place, to person Eyes: Lids and Conjunctivae: non-injected, no discharge, no pallor. Pupils: PERRLA Wma-Rxoo-Vendt-Throat: Ears: no lesions on external ear, no outer ear tenderness, EACs clear, TMs clear. Hearing: no hearing loss. Nose: no lesions on external nose, no sinus tenderness, nares non-patent, post nasal drip. Lips, Teeth, and Gums: no mouth or lip ulcers. Oropharynx: moist mucous membranes, erythema Neck: Neck: supple. Lymph Nodes: no cervical LAD Lungs: Respiratory effort: no dyspnea. Auscultation: breath sounds normal Cardiovascular: Heart Auscultation: RRR
--- OUTSIDE RECORDS SUMMARY | 2018-07-30 12:16 | XMS REPORT | Encounter Summary ---
Author Organization Unknown Address [address] [place] [address] Phone [phone] Reason for Visit Medical Complaint Instructions 1. Dysuria urinalysis, dipstick ciprofloxacin 500 mg tablet culture, urine urinary tract infection in women: care instructions 2. Acute upper respiratory infection upper respiratory infection (cold): care instructions rapid strep group A, throat rapid flu (A+B) Discussion Note: None recorded. Plan of Care Reminders Provider Appointments None recorded. Lab Urinalysis, Dipstick 02/08/2017 [facility] Culture, Urine 02/08/2017 [facility] Rapid Strep Group a, Throat 02/08/2017 [facility] Rapid Flu (A+B) 02/08/2017 [facility] Referral None recorded. Procedures None [...] Flu (A+B) Influenza a negative [facility]: [address] [place] [address] Influenza B negative [facility]: [address] [place] [address] Rapid Strep Group a, Throat Result negative [facility]: [address] [place] [address] Swab Location Left and Right tonsillar pillars [facility]: [address] [place] [address] Urinalysis, Dipstick Color : Yellow [facility]: [address] [place] [address] Clarity : Cloudy [facility]: [facility] Leukocytes : Trace [facility]: [facility] Nitrites : Positive [facility]: [facility] Urobilinogen : Normal [facility]: [facility] Protein : 300 [facility]: [address] [place] [address] Ph : 5.0 [facility]: [facility] Blood : Moderate [facility]: [facility] Specific [place] : 1.005 [facility]: [facility] Ketones : Negative [facility]: [facility] Bilirubin : Negative [facility]: [address] [place] [address] Glucose Negative [facility]: [address] [place] [address] Allergies Code Code System Name Reaction Severity [...] Dysuria; Acute Upper Respiratory Infection Rissa Angel, FREIGHT FLAGMAN: [address] [place] [address], Ph. History of Present Illness [id number]-Renxina Reported By: Patient HPI: Location: urethra. Quality: [...] burning sensation during urination, urgency, urinary frequency Boihk-Ebbseumecm-Zbvfraa Reported By: Patient HPI: Location: head/sinuses, throat. [...] Orientation: to time, to place, to person Vhs-Dysa-Jxamo-Throat: Ears: no lesions on external ear, no [...]
[2018-07-30 13:11] LABS: BASOPHILS # (AUTO) 0.1 (0.0-0.1); BASOPHILS % 0.5 % (0.0-1.0); EOSINOPHILS # (AUTO) 0.1 (0.0-0.4); EOSINOPHILS % 1.2 % (0.0-6.0); HEMATOCRIT 38.9 % (34.2-44.1); HEMOGLOBIN 12.4 g/dL (12.0-16.0); LYMPHOCYTES # (AUTO) 2.7 (1.0-3.2); LYMPHOCYTES % 29.1 % (18.0-39.1); MEAN CORPUSCULAR HEMOGLOBIN 27.3 pg (28-32); MEAN CORPUSCULAR HGB CONC 31.9 g/dL (31-35); MEAN CORPUSCULAR VOLUME 85.7 fL (81-99); MONOCYTES # (AUTO) 0.7 (0.2-0.8); MONOCYTES % 7.3 % (4.4-11.3); NEUTROPHILS # (AUTO) 5.8 (2.1-6.9); NEUTROPHILS % 61.7 % (38.7-80.0); PLATELET COUNT 263 x10e3/uL (140-360); RED BLOOD COUNT 4.54 x10e6/uL (3.6-5.1); RED CELL DISTRIBUTION WIDTH 15.2 % (11.7-14.4)
[2018-07-30 13:31] LABS: ALANINE AMINOTRANSFERASE 15 IU/L (0-55); ALBUMIN 3.9 g/dL (3.5-5.0); ALBUMIN/GLOBULIN RATIO 1.1 (0.8-2.0); ALKALINE PHOSPHATASE 60 IU/L (40-150); ANION GAP 12.3 mmol/L (8-16); BLOOD UREA NITROGEN 12 mg/dL (7-26); BUN/CREATININE RATIO 13 (6-25); CALCIUM 9.9 mg/dL (8.4-10.2); CARBON DIOXIDE 23 mmol/L (22-29); CHLORIDE 109 mmol/L (98-107); CREATININE, SERUM 0.92 mg/dL (0.57-1.11); EST GLOMERULAR FILTRATION RATE > 60 ML/MIN (60-); GLUCOSE 80 mg/dL (74-118); POTASSIUM 4.3 mmol/L (3.5-5.1); SODIUM 140 mmol/L (136-145)
[2018-07-30 13:51] LABS: THYROID STIMULATING HORMONE 1.931 uIU/mL (0.350-4.940)
[2018-07-30 14:09] VITALS: BP 112/78
== END 2018-07-30 14:10 | disposition home or self-care (01) ==
LOC: ER 12:10
DX: R00.2 Palpitations (principal); E03.9 Hypothyroidism, unspecified; K21.9 Gastro-esophageal reflux disease without esophagitis; Z98.84 Bariatric surgery status
CPT/HCPCS: 36415; 80053; 84443; 84484; 85025; 93005; 99283

== ENCOUNTER 2018-09-01 20:15 | Emergency (ER) | payer OTHER, BC ==
[~2018-09-01] VITALS: Ht 170.2 cm; Wt 102.1 kg
--- OUTSIDE RECORDS SUMMARY | 2018-09-01 20:19 | XMS REPORT | Clinical Summary ---
Author Author [facility] Organization [facility] Address Unknown Phone Unavailable Care Team Providers Care Manager Willow Name Role Phone Wiliam Nolan MD PCP [...] Comments CERVICAL CANCER SCREENING 2010 INFLUENZA VACCINE 12/29/2018 Results Not on fileafter 08/31/2017 Insurance Payer Benefit Subscriber ID Type Phone Address Plan / Group AETNA AETNA PPO xxxxxxxxxx PPO OPEN CHOICE AETNA AETNA xxxxxxxxxx HMO HMO,POS,EP O, MC/EC Alyse Hahn Reconstruc Self [phone] (Home) [place] [id number] Surgery Advance Directives Patient has advance care planning documents on file. For more information, angelo pickens contact: [employer] [address] [place] [address]
--- OUTSIDE RECORDS SUMMARY | 2018-09-01 20:19 | XMS REPORT | Continuity of Care Document ---
Author Author [facility] Interface Address Unknown Phone Unavailable Problems Problem [...] day by oral route. Active [facility] Nystatin 379711 UNT/ML Topical Cream nystatin 100,000 unit/gram topical [...] Azelastine hydrochloride 0.137 MG/ACTUAT Metered Dose Nasal [place] azelastine 137 mcg (0.1 %) nasal spray aerosol [place] 2 sprays twice a day by intranasal [...] PO BID FOR 10 DAYS Active [facility] Albuterol Sulfate (Proair Hfa Inhaler*) 8.5 Gm Inh As Needed Active [facility] Amphet Asp/Amphet/D-Amphet (Adderall 10 Mg Tablet) 10 Mg Tablet Daily Active [facility] Etonogestrel/Ethinyl Estradiol (Nuvaring Vaginal Ring) 1 Each Vag.ring Active [facility] Fluticasone/Salmeterol (Advair Hfa 115-21 Mcg Inhaler) 12 Gm Hfa.aer.ad As Needed Active [facility] Allergies, Adverse Reactions, Alerts Substance Category Reaction Severity Reaction type Status Date Reported Comments Source Prednisone Itching Severe Allergy to substance 03/11/2015 [facility] Immunizations Immunization Date Given Site Status Last Updated Comments Source Results Order Name Results Value Reference Range Date Interpretation Comments Source Blood leukocytes automated count (number/volume) 9.37 4.8 - 10.8 07/30/2018 [facility] Blood erythrocytes automated count (number/volume) 4.54 3.6 - 5.1 07/30/2018 [facility] Blood hemoglobin measurement (moles/volume) 12.4 12.0 - 16.0 07/30/2018 [facility] Automated blood hematocrit (volume fraction) 38.9 34.2 - 44.1 07/30/2018 [facility] Automated erythrocyte mean corpuscular volume 85.7 81 - 99 07/30/2018 [facility] Automated erythrocyte mean corpuscular hemoglobin (mass per erythrocyte) 27.3 28 - 32 07/30/2018 [facility] Automated erythrocyte mean corpuscular hemoglobin concentration measurement (mass/volume) 31.9 31 - 35 07/30/2018 [facility] RDW BldCo-Rto 15.2 11.7 - 14.4 07/30/2018 [facility] Automated blood platelet count (count/volume) 263 140 - 360 07/30/2018 [facility] Automated blood segmented neutrophil count as percentage of total leukocytes 61.7 38.7 - 80.0 07/30/2018 [facility] Automated blood lymphocyte count as percentage ot total leukocytes 29.1 18.0 - 39.1 07/30/2018 [facility] Automated blood monocyte count as percentage of total leukocytes 7.3 4.4 - 11.3 07/30/2018 [facility] Automated blood eosinophil count as percentage of total leukocytes 1.2 0.0 - 6.0 07/30/2018 [facility] Automated blood basophil count as percentage of total leukocytes 0.5 0.0 - 1.0 07/30/2018 [facility] IM GRANULOCYTES % 0.2 0.0 - 1.0 07/30/2018 [facility] Automated blood neutrophil count 5.8 2.1 - 6.9 07/30/2018 [facility] Blood lymphocytes count (number/volume) 2.7 1.0 - 3.2 07/30/2018 [facility] Blood monocytes automated count (number/volume) 0.7 0.2 - 0.8 07/30/2018 [facility] Automated blood eosinophil count 0.1 0.0 - 0.4 07/30/2018 [facility] Automated blood basophil count (count/volume) 0.1 0.0 - 0.1 07/30/2018 [facility] Absolute Immature Granulocyte (auto 0.02 0 - 0.1 07/30/2018 [facility] Serum or plasma sodium measurement (moles/volume) 140 136 - 145 07/30/2018 [facility] Serum or plasma potassium measurement (moles/volume) 4.3 3.5 - 5.1 07/30/2018 [facility] Serum or plasma chloride measurement (moles/volume) 109 98 - 107 07/30/2018 [facility] Serum or plasma carbon dioxide, total measurement (moles/volume) 23 22 - 29 07/30/2018 [facility] Serum or plasma anion gap 12.3 8 - 16 07/30/2018 [facility] Serum or plasma urea nitrogen measurement (mass/volume) 12 7 - 26 07/30/2018 [facility] Serum or plasma creatinine measurement (mass/volume) 0.92 0.57 - 1.11 07/30/2018 [facility] Serum or plasma urea nitrogen/creatinine mass ratio 13 6 - 25 07/30/2018 [facility] Estimated glomerular filtration rate (GFR) determination > 60 60 07/30/2018 [facility] Glucose measurement 80 74 - 118 07/30/2018 [facility] Serum or plasma calcium measurement (mass/volume) 9.9 8.4 - 10.2 07/30/2018 [facility] Serum or plasma total bilirubin measurement (mass/volume) 0.2 0.2 - 1.2 07/30/2018 [facility] Aspartate Amino Transf (AST/SGOT) 15 5 - 34 07/30/2018 [facility] Serum or plasma alanine aminotransferase measurement (enzymatic activity/volume) 15 0 - 55 07/30/2018 [facility] Serum or plasma protein measurement (mass/volume) 7.6 6.5 - 8.1 07/30/2018 [facility] Serum or plasma albumin measurement (mass/volume) 3.9 3.5 - 5.0 07/30/2018 [facility] Plasma globulin measurement (mass/volume) 3.7 2.3 - 3.5 07/30/2018 [facility] Serum or plasma albumin/globulin mass ratio 1.1 0.8 - 2.0 07/30/2018 [facility] Serum or plasma alkaline phosphatase measurement (enzymatic activity/volume) 60 40 - 150 07/30/2018 [facility] Troponin I measurement by highly sensitive enzyme immunoassay < 0.001 0 - 0.300 07/30/2018 [facility] Serum or plasma thyrotropin measurement by detection limit <=0.005 miu/l (units/volume) 1.931 0.350 - 4.940 07/30/2018 [facility] Influenza A negative 02/28/2018 [facility] Influenza B [...] Date Status Source [place] - [facility] - [id number] ADARSH MelloP: [address] [place] [address], Ph. [id number] Bailey Sanon 01/28/2016 [facility] [place] - [facility] - [id number] FE Nunes-C: [address] [place] [address], Ph. [id number] Brian Sanon 08/15/2016 [facility] [place] - [facility] - [id number] Rissa Angel, TILE PICKER: [address] [place] [address], Ph. [id number] Rissa Angel 02/08/2017 [facility] [place] - [facility] - [id number] Rissa Angel, TILE PICKER: [address], [place] [address], Ph. [id number] Rissa Jeanne 02/08/2017 [facility] [place] - [facility] - [id number] Brian Sanon, TILE PICKER-C: [address], [place] [address], Ph. [id number] Brian Sanon 04/23/2017 [facility] [place] - [facility] - [id number] Emely Wiley, TILE PICKER: [address], [place] [address], Ph. [id number] Emely Wiley 08/04/2017 [facility] [place] - [facility] - [id number] Bailey Talita, TILE PICKER: [address], [place] [address], Ph. [id number] Bailey Talita 11/10/2017 [facility] [place] - [facility] - [id number] Christina Hicks, TILE PICKER: [address], [place] [address], Ph. [id number] Christina Hicks 02/28/2018 [facility] Departed Emergency Room [id number] YUE WILL MD 07/30/2018 07/30/2018 [facility] Procedures Procedure Code Date Perfomer Comments Source Tonsillectomy [facility] Gastric Bypass [facility]
[2018-09-01] MEDS ORDERED: HYDROMORPHONE 1MG/1ML INJ IV STA (21:18)
[2018-09-01] MEDS ORDERED: HYDROMORPHONE 2MG/ML 2 MG/ML ML IV ONE (21:30)
[2018-09-01] MEDS ORDERED: HYDROMORPHONE 2MG/ML 2 MG/ML ML IV STA (22:22)
[2018-09-01] MEDS ORDERED: ONDANSETRON HCL 4 MG ORAL DISINTEGRATING TAB PO ONE (22:30)
== END 2018-09-01 22:45 | disposition left against medical advice (07) ==
LOC: ER 20:15
DX: R51 Headache (principal)